=== PATIENT | female | born 1980 | race Caucasian/White ===

== ENCOUNTER 2017-12-03 12:14 | Observation (INO) ==
[2017-12-03] MEDS ORDERED: methylPREDNISolone 125 MG/2 ML VIAL IVP ONE (12:32)
--- NOTE | 2017-12-03 12:32 | Emergency Department Note ---
Disposition Clinical Impression: Facial cellulitis Disposition: Admitted As Inpatient Condition: Good Time of Disposition: 15:49 General Adult HPI - General Chief complaint: ED Allergic Reaction Stated complaint: facial and throat swelling Time Seen by Provider: 12/03/17 12:19 Source: patient Limitations: no limitations Nursing Notes Reviewed: Yes Vital Signs Reviewed: Yes - History of Present Illness HPI Narrative: 37-year-old female otherwise healthy presents to the emergency department with left facial swelling and rash. Initially started 6 days ago while at work. She noticed that her face started to feel warm and she noticed redness. It has progressively gotten larger more red and itchy. She saw her primary care physician the other day and was placed on hydroxyzine. She denies any recent changes to her medications. No new detergents. No changes to her facial products. She does report trialing by candice Salmeron the night before but she continues to take that at this time. She has been picking hydroxyzine on top of that as well. She denies any other complaints. She does report some trouble with swallowing but no difficulty with breathing. Denies any recent dental procedures. Denies any other complaints. Pain Scale: 0 - Related Data Previous Rx's Medication Instructions Recorded Hydrocodone/Acetaminophen [[place] 1 tab PO Q4H PRN #20 tab 12/30/14 5-325 Tablet] Promethazine [Phenergan] 25 mg PO Q8HR PRN #10 tablet 12/30/14 Sulfamethoxazole/Trimeth DS 1 each PO BID 10 Days tablet 12/30/14 [Bactrim DS] Allergies Allergy/AdvReac Type Severity Reaction Status Date / Time Amoxicillin [From Augmentin] Allergy Rash Verified 12/30/14 09:15 clavulanic acid Allergy Rash Verified 12/30/14 09:15 [From Augmentin] All systems ED: reviewed and negative except as stated. Review of Systems: As Per HPI Constitutional: Denies: fever, chills Eyes: Denies: eye pain, vision change ENT ED: Reports: ear pain, dysphagia. Denies: dental pain, congestion Cardiovascular: Denies: chest pain Respiratory: Denies: cough, dyspnea Gastrointestinal: Denies: abdominal pain, nausea, vomiting Musculoskeletal: Denies: back pain, neck pain Integumentary: Reports: as per HPI Neurological: Denies: headache, weakness, numbness Endocrine: Denies: fatigue Past Medical History - Past Medical History Attestation: Yes The following information was validated with the patient. Source: patient Medical history: Reports: asthma, other Surgical history: Reports: Psychiatric history: Reports: no psych history - Social History Smoking Status: Never smoker Smokeless Tobacco Status: No Alcohol use: Reports: rarely Drug use: Reports: none Physical Exam - General Limitations: no limitations General appearance: alert, anxious - Head Head exam: atraumatic, normocephalic - Expanded Head Exam Head exam physicial: Present: other (Left side of her throat derma, raised no vesicles or pustules extends from the forehead down to the mandible with some involvement to the left inferior earlobe). Absent: laceration, abrasion - Eye Eye exam: Present: normal appearance, PERRL, EOMI, periorbital swelling, other ( No proptosis). Absent: periorbital tenderness - ENT ENT exam: normal exam, normal oropharynx, mucous membranes moist - Expanded ENT Exam External ear exam: Present: other (erythema and induration) Nose exam: other (no dickinson sign). negative: rhinorrhea Mouth exam: Present: normal external inspection, tongue normal Teeth exam: Present: normal inspection Throat exam: Present: normal inspection - Neck Neck exam: Present: full ROM, trachea midline, other (red, rash to left neck expanding up to face) - Chest Chest inspection: Present: normal inspection, symmetric chest wall rise. Absent : tenderness, rash - Respiratory Respiratory exam: Present: normal lung sounds bilaterally. Absent: respiratory distress, wheezes, stridor - Cardiovascular Cardiovascular exam: Present: regular rate, normal rhythm, normal heart sounds - Abdominal Exam Abdominal exam: Present: soft, Non-Tender, normal bowel sounds. Absent: tenderness, distention, guarding, rebound, rigidity - Extremities Exam Extremities exam: Present: normal inspection, full ROM, normal capillary refill. Absent: tenderness, pedal edema - Back Exam Back exam: Present: normal inspection, full ROM. Absent: tenderness - Neurological Exam Neurological exam: Present: alert, oriented X3 - Psychiatric Psychiatric exam: Present: normal affect, normal mood - Skin Skin exam: Present: dry, intact, normal color, rash, erythema - Expanded Skin Exam Type of lesion: Present: rash Distribution: head, face, neck Description: Present: macular, papular, indurated. Absent: swelling, vesicular , blisters, urticarial Course - Consultations Time: 15:49 Vital Signs Temperature 98.5 F 12/03/17 12:19 Pulse Rate 94 12/03/17 12:19 Respiratory Rate 20 12/03/17 12:19 Blood Pressure 160/93 12/03/17 12:19 O2 Sat by Pulse Oximetry 98 12/03/17 12:19 Temperature 98.1 F 12/03/17 16:58 Pulse Rate 88 12/03/17 16:58 Respiratory Rate 17 12/03/17 16:58 Blood Pressure 118/79 12/03/17 16:58 O2 Sat by Pulse Oximetry 95 12/03/17 16:58 Oxygen Delivery Oxygen Delivery Room Air Medical Decision Making - MDM Narrative Medical decision making narrative: Patient was discussed with my attending physician who agrees with ED management and final disposition. They independently evaluated the patient. Please refer to their attestation to this encounter for additional information. This note was generated by [employer] voice recognition software and as a result grammatical or spelling errors may occur using this program. - Lab Data Result diagrams: 12/03/17 12:54 12/03/17 12:54 Lab Results 12/03/17 12/03/17 Range/Units 12:54 12:54 WBC 10.8 (4.3-11.1) K/mcL RBC 4.90 (3.82-4.97) M/mcL Hgb 14.1 (11.5-15.4) g/dL Hct 43.0 (35.3-44.9) % MCV 87.8 (83.0-100.0) fL MCH 28.8 (28.0-33.3) pg MCHC 32.8 (31.6-35.5) g/dL RDW 12.4 (11.5-14.5) % Plt Count 453 H (140-400) K/mcL MPV 8.7 L (9.4-12.4) fL Immature Gran % 0.3 (0-4) % Seg Neutrophils % 38.6 % Lymphocytes % 43.0 % Monocytes % 8.8 % Eosinophils % 8.4 % Basophils % 0.9 % Neutrophils # 4.2 (1.6-8.9) K/mcL Lymphocytes # 4.6 (0.6-4.6) K/mcL Monocytes # 1.0 (0.0-1.3) K/mcL Eosinophils # 0.9 H (0.0-0.6) K/mcL Basophils # 0.1 (0.0-0.2) K/mcL Sodium 141 (136-145) mEq/L Potassium 3.5 (3.5-5.1) mEq/L Chloride 106 (98-107) mEq/L Carbon Dioxide 27 (23-29) mEq/L BUN 14 (6-20) mg/dL Creatinine 0.84 (0.60-1.20) mg/dL Est GFR ( Amer) > 60 (> 60) Est GFR (Non-Af Amer) > 60 (> 60) BUN/Creatinine Ratio 17 (6-26) Glucose 82 (70-105) mg/dL Calculated Osmolality 292 (280-300) Calcium 9.1 (8.6-10.3) mg/dL
[2017-12-03] MEDS ORDERED: Isovue-370 500 ML INFUS..BTL IV ONE (12:33)
--- NOTE | 2017-12-03 12:52 | Emergency Department Note ---
Disposition Clinical Impression: Facial cellulitis Disposition: Admitted As Inpatient Condition: Good General Adult HPI - General Chief complaint: ED Allergic Reaction Stated complaint: facial and throat swelling Time Seen by Provider: 12/03/17 12:19 Source: patient Mode of arrival: private vehicle Limitations: no limitations Vital Signs Reviewed: Yes - History of Present Illness HPI Narrative: The patient is a 37 year old female that presents with left-sided facial swelling and erythema. Per patient's report, starting 5 day ago patient started to notice some itching along the left-side of her face and neck. Since that time the left-side of her face has continue to swell with increasing erythema. Patient was seen by her PCP 2 days ago who prescribed her hydroxyzine at that time, which has helped with itching, but she continues to have worsening symptoms. Patient says the day prior to developing her symptoms she did start a new dye free Benadryl the day prior to all off her symptoms starting. She has continued to take the Benadryl daily since that time. Patient otherwise denies any new lotions, soaps, detergents, and foods. Patient denies any fever, chills , chest pain, shortness of breath, abdominal pain, nausea, vomiting, diarrhea, pain with eye movement. Pain Scale: 0 - Related Data Previous Rx's Medication Instructions Recorded Hydrocodone/Acetaminophen [[place] 1 tab PO Q4H PRN #20 tab 12/30/14 5-325 Tablet] Promethazine [Phenergan] 25 mg PO Q8HR PRN #10 tablet 12/30/14 Sulfamethoxazole/Trimeth DS 1 each PO BID 10 Days tablet 12/30/14 [Bactrim DS] Allergies Allergy/AdvReac Type Severity Reaction Status Date / Time Amoxicillin [From Augmentin] Allergy Rash Verified 12/30/14 09:15 clavulanic acid Allergy Rash Verified 12/30/14 09:15 [From Augmentin] All systems ED: reviewed and negative except as stated. Constitutional: Denies: fever, chills Eyes: Denies: eye pain, eye discharge, vision change ENT ED: Denies: ear pain, throat pain, congestion Cardiovascular: Denies: chest pain, palpitations Respiratory: Denies: cough, dyspnea, wheezes Gastrointestinal: Denies: abdominal pain, nausea, vomiting, diarrhea Genitourinary: Denies: urgency, dysuria, frequency, hematuria Musculoskeletal: Denies: back pain, neck pain Integumentary: Reports: rash Neurological: Denies: headache, weakness, numbness, paresthesias Past Medical History - Past Medical History Attestation: Yes The following information was validated with the patient. Source: patient Medical history: Reports: asthma, other Surgical history: Reports: Psychiatric history: Reports: no psych history - Social History Smoking Status: Never smoker Smokeless Tobacco Status: No Alcohol use: Reports: rarely Drug use: Reports: none Physical Exam - General Limitations: no limitations General appearance: alert, anxious - Head Head exam: atraumatic, normocephalic - Eye Eye exam: Present: normal appearance, EOMI. Absent: scleral icterus, conjunctival injection - ENT ENT exam: normal exam, mucous membranes moist, normal external ear exam - Neck Neck exam: Present: normal inspection, full ROM, trachea midline - Chest Chest inspection: Present: normal inspection, symmetric chest wall rise - Respiratory Respiratory exam: Present: normal lung sounds bilaterally. Absent: respiratory distress, wheezes - Cardiovascular Cardiovascular exam: Present: regular rate, normal rhythm, normal heart sounds. Absent: systolic murmur, diastolic murmur, rubs, gallop - Extremities Exam Extremities exam: Present: normal inspection, full ROM. Absent: pedal edema - Neurological Exam Neurological exam: Present: alert, oriented X3 - Psychiatric Psychiatric exam: Present: normal affect, normal mood - Skin Skin exam: Present: warm, dry, rash, other (erythema and swelling spanding from the left forehead, left ear, left temporal region down to the left of the mandible with associated swelling. Their is purulent draining coming from the left ear lobe.) Course Course Narrative: Patient is a 37 year old female that presented with left facial erythema and swelling that worsened over the past 3 days. CBC, BMP and CT of the face and neck were ordered. Vital Signs Temperature 98.5 F 12/03/17 12:19 Pulse Rate 94 12/03/17 12:19 Respiratory Rate 20 12/03/17 12:19 Blood Pressure 160/93 12/03/17 12:19 O2 Sat by Pulse Oximetry 98 12/03/17 12:19 Temperature 98.1 F 12/03/17 16:58 Pulse Rate 88 12/03/17 16:58 Respiratory Rate 17 12/03/17 16:58 Blood Pressure 118/79 12/03/17 16:58 O2 Sat by Pulse Oximetry 95 12/03/17 16:58 Oxygen Delivery Oxygen Delivery Room Air Medical Decision Making - MDM Narrative Medical decision making narrative: Patient has remained hemodynamically stable through out her ED work up. CBC and BMP were unremarkable. CT showed left facial celulitis without an underlying abscess. Patient was started on Clindamycin in the ED. She also received Benadryl and Solumedrol during her ED work up. Labs and imaging were discussed with the patient. Discussed with patient plan to admit her. She was agreeable to the plan at that time. Discussed case with hospitalist who agrees to admit the patient. - Lab Data Result diagrams: 12/03/17 12:54 12/03/17 12:54 Lab Results 12/03/17 12/03/17 Range/Units 12:54 12:54 WBC 10.8 (4.3-11.1) K/mcL RBC 4.90 (3.82-4.97) M/mcL Hgb 14.1 (11.5-15.4) g/dL Hct 43.0 (35.3-44.9) % MCV 87.8 (83.0-100.0) fL MCH 28.8 (28.0-33.3) pg MCHC 32.8 (31.6-35.5) g/dL RDW 12.4 (11.5-14.5) % Plt Count 453 H (140-400) K/mcL MPV 8.7 L (9.4-12.4) fL Immature Gran % 0.3 (0-4) % Seg Neutrophils % 38.6 % Lymphocytes % 43.0 % Monocytes % 8.8 % Eosinophils % 8.4 % Basophils % 0.9 % Neutrophils # 4.2 (1.6-8.9) K/mcL Lymphocytes # 4.6 (0.6-4.6) K/mcL Monocytes # 1.0 (0.0-1.3) K/mcL Eosinophils # 0.9 H (0.0-0.6) K/mcL Basophils # 0.1 (0.0-0.2) K/mcL Sodium 141 (136-145) mEq/L Potassium 3.5 (3.5-5.1) mEq/L Chloride 106 (98-107) mEq/L Carbon Dioxide 27 (23-29) mEq/L BUN 14 (6-20) mg/dL Creatinine 0.84 (0.60-1.20) mg/dL Est GFR ( Amer) > 60 (> 60) Est GFR (Non-Af Amer) > 60 (> 60) BUN/Creatinine Ratio 17 (6-26) Glucose 82 (70-105) mg/dL Calculated Osmolality 292 (280-300) Calcium 9.1 (8.6-10.3) mg/dL
--- NOTE | 2017-12-03 13:01 | Emergency Department Note ---
Disposition Clinical Impression: Facial cellulitis Disposition: Admitted As Inpatient Condition: Good Time of Disposition: 16:42 General Adult HPI - General Chief complaint: ED Allergic Reaction Stated complaint: facial and throat swelling Time Seen by Provider: 12/03/17 12:19 Source: patient Mode of arrival: private vehicle Limitations: no limitations - History of Present Illness Pain Scale: 0 - Related Data Previous Rx's Medication Instructions Recorded Hydrocodone/Acetaminophen [[place] 1 tab PO Q4H PRN #20 tab 12/30/14 5-325 Tablet] Promethazine [Phenergan] 25 mg PO Q8HR PRN #10 tablet 12/30/14 Sulfamethoxazole/Trimeth DS 1 each PO BID 10 Days tablet 12/30/14 [Bactrim DS] Allergies Allergy/AdvReac Type Severity Reaction Status Date / Time Amoxicillin [From Augmentin] Allergy Rash Verified 12/30/14 09:15 clavulanic acid Allergy Rash Verified 12/30/14 09:15 [From Augmentin] Constitutional: Denies: fever, chills Eyes: Denies: eye pain, vision change ENT ED: Reports: ear pain, dysphagia. Denies: dental pain, congestion Cardiovascular: Denies: chest pain Respiratory: Denies: cough, dyspnea Gastrointestinal: Denies: abdominal pain, nausea, vomiting Musculoskeletal: Denies: back pain, neck pain Integumentary: Reports: as per HPI Neurological: Denies: headache, weakness, numbness Endocrine: Denies: fatigue Past Medical History - Past Medical History Medical history: Reports: asthma, other Surgical history: Reports: Psychiatric history: Reports: no psych history - Social History Smoking Status: Never smoker Smokeless Tobacco Status: No Alcohol use: Reports: rarely Drug use: Reports: none Physical Exam - General Limitations: no limitations General appearance: alert, anxious Course Vital Signs Temperature 98.5 F 12/03/17 12:19 Pulse Rate 94 12/03/17 12:19 Respiratory Rate 20 12/03/17 12:19 Blood Pressure 160/93 12/03/17 12:19 O2 Sat by Pulse Oximetry 98 12/03/17 12:19 Temperature 98.3 F 12/03/17 16:39 Pulse Rate 83 12/03/17 14:12 Respiratory Rate 20 12/03/17 16:39 Blood Pressure 115/82 12/03/17 16:39 O2 Sat by Pulse Oximetry 98 12/03/17 14:12 Oxygen Delivery Oxygen Delivery Room Air Medical Decision Making - Lab Data Result diagrams: 12/03/17 12:54 12/03/17 12:54 Lab Results 12/03/17 12/03/17 Range/Units 12:54 12:54 WBC 10.8 (4.3-11.1) K/mcL RBC 4.90 (3.82-4.97) M/mcL Hgb 14.1 (11.5-15.4) g/dL Hct 43.0 (35.3-44.9) % MCV 87.8 (83.0-100.0) fL MCH 28.8 (28.0-33.3) pg MCHC 32.8 (31.6-35.5) g/dL RDW 12.4 (11.5-14.5) % Plt Count 453 H (140-400) K/mcL MPV 8.7 L (9.4-12.4) fL Immature Gran % 0.3 (0-4) % Seg Neutrophils % 38.6 % Lymphocytes % 43.0 % Monocytes % 8.8 % Eosinophils % 8.4 % Basophils % 0.9 % Neutrophils # 4.2 (1.6-8.9) K/mcL Lymphocytes # 4.6 (0.6-4.6) K/mcL Monocytes # 1.0 (0.0-1.3) K/mcL Eosinophils # 0.9 H (0.0-0.6) K/mcL Basophils # 0.1 (0.0-0.2) K/mcL Sodium 141 (136-145) mEq/L Potassium 3.5 (3.5-5.1) mEq/L Chloride 106 (98-107) mEq/L Carbon Dioxide 27 (23-29) mEq/L BUN 14 (6-20) mg/dL Creatinine 0.84 (0.60-1.20) mg/dL Est GFR ( Amer) > 60 (> 60) Est GFR (Non-Af Amer) > 60 (> 60) BUN/Creatinine Ratio 17 (6-26) Glucose 82 (70-105) mg/dL Calculated Osmolality 292 (280-300) Calcium 9.1 (8.6-10.3) mg/dL Attestation Statement - Attestation Attestation: I examined this patient and my medical decision-making was reviewed with the Resident Physician. I agree with the documented findings, disposition and treatment plan as described except to the extent set forth below. Patient presents to the emergency Department chief complaint of left-sided facial swelling. Patient's symptoms started Monday as hives. She had bumps on her cheek that progressed and got larger over the next couple of days. They resolved but then her face became increasingly swollen red and hot. She states it itches. She is seen her PCP and was taking Benadryl and prednisone. It is getting worse. On examination she is awake and alert. She is a moderate amount of swelling and erythema to the left cheek, temporal, and left lateral jaw. There is no sublingual swelling. Her ear canal appears normal. Posterior pharynx appears normal. Dentition in good condition with no signs of cavities or infections. Plan. Patient appears to have a left-sided facial cellulitis is quite extensive. We will check a CT scan. Basic labs. Patient CT scan shows a facial cellulitis. It appears that she has a secondary infection. Patient given IV clindamycin. She does not meet SIRS criteria. Soft Tissue Neck CT 12/03/17 12:33 IMPRESSION: Left facial cellulitis. No abscess. D/ / Manuelito Tapia MD / Manuelito Tapia MD Interpreting Provider: Manuelito Tapia MD
[2017-12-03 13:09] LABS: Basophils # 0.1 K/mcL (0.0-0.2); Basophils % 0.9 %; Eosinophils # 0.9 K/mcL (0.0-0.6); Eosinophils % 8.4 %; Hemoglobin 14.1 g/dL (11.5-15.4); Immature Granulocytes % 0.3 % (0-4); Lymphocytes # 4.6 K/mcL (0.6-4.6); Mean Corpuscular HGB Conc 32.8 g/dL (31.6-35.5); Mean Corpuscular Hemoglobin 28.8 pg (28.0-33.3); Mean Corpuscular Volume 87.8 fL (83.0-100.0); Mean Platelet Volume 8.7 fL (9.4-12.4); Monocytes % 8.8 %; Neutrophils # 4.2 K/mcL (1.6-8.9); Platelet Count 453 K/mcL (140-400); Red Cell Distribution Width 12.4 % (11.5-14.5); Segmented Neutrophils % 38.6 %
[2017-12-03 13:24] LABS: BUN/Creatinine Ratio 17 (6-26); Blood Urea Nitrogen 14 mg/dL (6-20); Calcium 9.1 mg/dL (8.6-10.3); Carbon Dioxide 27 mEq/L (23-29); Chloride 106 mEq/L (98-107); Glucose 82 mg/dL (70-105); Osmolality,Calculated 292 (280-300); Potassium 3.5 mEq/L (3.5-5.1); Sodium 141 mEq/L (136-145); eGFR For Non-African Americans > 60 (> 60)
[2017-12-03] MEDS ORDERED: Clindamycin 900 MG/50 ML 900 MG/50 ML IV.SOLN IVPB ONE (14:21)
[2017-12-03] MEDS ORDERED: Acetaminophen 325 MG TABLET PO PRN (16:26)
[2017-12-03] MEDS ORDERED: Naloxone 0.4 MG/ML INJ IVP PRN (16:26)
[2017-12-03] MEDS ORDERED: traMADol 50 MG TABLET PO PRN (16:26)
--- NOTE | 2017-12-03 16:37 | Internal Med History&Physical ---
<Brittni Buchanan - Last Filed: 12/03/17 16:34> Date of Encounter: 12/03/17 Time of Encounter: 16:34 Internal Medicine - H&P: HPI Admitted From: Home Plans for Post Hospital Care: Home History of present illness: Ms. Grande is a 37 year old female that presents with left-sided facial swelling and erythema. Per patient's report, starting 5 day ago patient started to notice some itching along the left-side of her face and neck. Since that time the left-side of her face has continue to swell with increasing erythema. Patient was seen by her PCP 2 days ago who prescribed her hydroxyzine at that time, which has helped with itching, but she continues to have worsening symptoms. Patient says the day prior to developing her symptoms she did start a new Benadryl the day prior to all off her symptoms starting. She has continued to take the Benadryl daily since that time. Patient otherwise denies any new lotions, soaps, detergents, and foods. Patient denies any fever, chills, chest pain, shortness of breath, abdominal pain, nausea, vomiting, diarrhea, pain with eye movement. At the ED, patient vital signs were stable, labs were unremarkable, CT of face and neck soft tissue showed possible left-sided facial cellulitis. Patient received 1 dose of clindamycin at the ED. Patient will be admitted as observation for further evaluation and treatment. Past Med Surg Social Fam HX - Past Medical History Medical history: asthma, other Additional medical history: cardiac ablation Psychiatric history: no psych history - Past Surgical History Surgical History: Additional surgical history: ablasion - Social History Smoking Status: Never smoker Smokeless Tobacco Status: No Alcohol use: rarely Drug use: none Internal Medicine - H&P: Meds Fluticasone/Salmeterol [Advair 250-50 Diskus] 1 puff PO BID 12/03/17 [History] Montelukast [Singulair] 10 mg PO DAILY 12/03/17 [History] 3 Allergy/AdvReac Type Severity Reaction Status Date / Time Amoxicillin [From Augmentin] Allergy Rash Verified 12/03/17 17:22 clavulanic acid Allergy Rash Verified 12/03/17 17:22 [From Augmentin] Sulfa (Sulfonamide Allergy Rash Verified 12/03/17 17:22 Antibiotics) All Systems PM: A 10-system review of systems was performed and is negative for pertinent findings except as documented above in the HPI. Review of systems: REVIEW OF SYSTEMS: CONSTITUTIONAL: No weight loss, fever, chills, weakness or fatigue. HEENT: Eyes: No visual loss, blurred vision, double vision or yellow sclerae. Ears, Nose, Throat: No hearing loss, sneezing, congestion, runny nose or sore throat. SKIN: see HPI. CARDIOVASCULAR: No chest pain, chest pressure or chest discomfort. No palpitations or edema. RESPIRATORY: No shortness of breath, cough or sputum. GASTROINTESTINAL: No anorexia, nausea, vomiting or diarrhea. No abdominal pain or blood. GENITOURINARY: No dysuria, urgency, or frequency. NEUROLOGICAL: No headache, dizziness, syncope, paralysis, ataxia, numbness or tingling in the extremities. No change in bowel or bladder control. MUSCULOSKELETAL: No muscle, back pain, joint pain or stiffness. HEMATOLOGIC: No anemia, bleeding or bruising. LYMPHATICS: No enlarged nodes. No history of splenectomy. PSYCHIATRIC: No history of depression or anxiety. ENDOCRINOLOGIC: No reports of sweating, cold or heat intolerance. No polyuria or polydipsia. - Constitutional Vitals: Temp Pulse Resp BP Pulse Ox 98.4 F 83 20 135/88 98 12/03/17 14:12 12/03/17 14:12 12/03/17 14:12 12/03/17 14:12 12/03/17 14:12 General appearance: Present: cooperative, A&O X 3, answers questions appropriately Exam: PHYSICAL EXAMINATION: GENERAL APPEARANCE: The patient is alert, oriented and in no acute distress. HEENT: Head is normocephalic. The sinuses are nontender. Pupils are equal and reactive. The nares are patent. Oropharynx clear without lesions. NECK: Supple without lymphadenopathy. HEART: Regular rate and rhythm. LUNGS: No crackles or wheezes are heard. ABDOMEN: Soft, nontender, nondistended with good bowel sounds heard. Inguinal area is normal. EXTREMITIES: Without cyanosis, clubbing or edema. NEUROLOGICAL: Gross nonfocal. SKIN: left side of face has diffuse patchy erythematous rash with fine scales on the surface, no blister or drainage. Internal Med - H&P Results - Labs CBC & Chem 7: 12/03/17 12:54 12/03/17 12:54 - Assessment and plan (1) Facial cellulitis Current Visit: Yes Status: Acute Assessment and plan: 36-year-old female previous healthy presented with 5 days of left-sided facial swelling and redness. Has been treated by PCP as hives with oral steroids, Benadryl, and hydroxyzine, and Tums progressively getting worse. Face and neck CT showed possible soft tissue cellulitis. Patient received 1 dose of clindamycin at the ED. - Most likely etiologies skin infection, blood culture obtained and the results pending. We will continue IV antibiotics with cefepime, vancomycin, and clindamycin to cover all possible organisms. - Supportive care with IV steroid, zyrtec, and the H2 kat Zantac for possible allergic skin reactions. - Time Spent With Patient Total time spent is greater than 50% in coordination of care (as documented) at patient's floor/unit and/or counseling patient: Greater than 35 minutes <Judah Duran - Last Filed: 12/03/17 18:10> Date of Encounter: 12/03/17 Internal Medicine - H&P: HPI History of present illness: Ms. Grande is a 37 year old female All Systems PM: A 10-system review of systems was performed and is negative for pertinent findings except as documented above in the HPI. - Constitutional Vitals: Temp Pulse Resp BP Pulse Ox 98.1 F 88 17 118/79 95 12/03/17 16:58 12/03/17 16:58 12/03/17 16:58 12/03/17 16:58 12/03/17 16:58 Internal Med - H&P Results - Labs CBC & Chem 7: 12/03/17 12:54 12/03/17 12:54 - Assessment and plan (1) Facial cellulitis Current Visit: Yes Status: Acute - Time Spent With Patient Total time spent is greater than 50% in coordination of care (as documented) at patient's floor/unit and/or counseling patient: - Attending Attestation I have seen and examined the patient with INDIGO MIXER Dewayne Elkins and agree with his/ her assessment and plan. 37-year-old female with no significant past medical history is admitted for left-sided facial redness. Was being treated as an outpatient for hives with hydroxyzine and prednisone without relief. No known dental infections. Afebrile, hemodynamically stable, well demarcated areas of redness on left cheek and forehead. No vesicles seen or any involvement in the corner of the eyes or tip of the nose. Warm to touch, minimal tenderness on palpation, no pus expressed. Labs were unremarkable with normal white blood cell count. CT scan showed left-sided facial cellulitis without any bony involvement. Patient is allergic to Augmentin and sulfa; will treat with broad- spectrum antibiotics and monitor her course. Judah Duran MD
[2017-12-03] MEDS ORDERED: Cetirizine HCl 5 MG/5 ML UDC PO SCH (16:45)
[2017-12-03] MEDS: MethylPREDNISolone 40 MG/ML VIAL IVP SCH (18:47)
[2017-12-03] MEDS: Ringers Solution, Lactated 1,000 ML IVC SCH (18:48)
[2017-12-03] MEDS: Famotidine 20 MG TABLET PO SCH (19:26)
[2017-12-03] MEDS: Cefepime HCl 1,000 MG in 0.9 % Sodium Chloride Mini Bag 100 ML IVPB SCH (23:00)
[2017-12-03] MEDS: Clindamycin 600 MG/50 ML 600 MG/50 ML IV.SOLN IVPB SCH (23:41)
[2017-12-04 05:18] LABS: Hematocrit 41.1 % (35.3-44.9); Hemoglobin 13.4 g/dL (11.5-15.4); Mean Corpuscular HGB Conc 32.6 g/dL (31.6-35.5); Mean Corpuscular Hemoglobin 28.6 pg (28.0-33.3); Mean Corpuscular Volume 87.6 fL (83.0-100.0); Mean Platelet Volume 9.3 fL (9.4-12.4); Platelet Count 478 K/mcL (140-400); Red Blood Count 4.69 M/mcL (3.82-4.97); Red Cell Distribution Width 12.2 % (11.5-14.5)
[2017-12-04 05:37] LABS: BUN/Creatinine Ratio 16 (6-26); Blood Urea Nitrogen 11 mg/dL (6-20); Calcium 9.3 mg/dL (8.6-10.3); Carbon Dioxide 23 mEq/L (23-29); Chloride 107 mEq/L (98-107); Glucose 200 mg/dL (70-105); Osmolality,Calculated 291 (280-300); Sodium 138 mEq/L (136-145); eGFR For Non-African Americans > 60 (> 60)
[2017-12-04] MEDS: Budesonide/Formoterol 80/4.5 MDI IH SCH ×2 (05:43→14:05)
[2017-12-04] MEDS: MethylPREDNISolone 40 MG/ML VIAL IVP SCH ×2 (05:59→16:04)
[2017-12-04] MEDS: Clindamycin 600 MG/50 ML 600 MG/50 ML IV.SOLN IVPB SCH ×2 (08:23→16:04)
[2017-12-04] MEDS: Ringers Solution, Lactated 1,000 ML IVC SCH (08:24)
[2017-12-04] MEDS: Famotidine 20 MG TABLET PO SCH (08:25)
[2017-12-04] MEDS: Cefepime HCl 1,000 MG in 0.9 % Sodium Chloride Mini Bag 100 ML IVPB SCH ×2 (08:25→16:05)
[2017-12-04] MEDS ORDERED: *HR* LORazepam 0.5 MG TABLET PO STA (08:45)
[2017-12-04] MEDS ORDERED: Lactobacillus 1 EACH CAP.SPRINK PO SCH (09:00)
--- NOTE | 2017-12-04 09:24 | Internal Med Progress Note ---
Hospitalist Progress Note - Encounter Date of Encounter: 12/04/17 Time of Encounter: 09:21 - Subjective Interval History: Seen and examined at bedside today. Cellulitis on face improving. She is concerned that the swelling is extending into her lt neck. - Exam Vitals: Temp Pulse Resp BP Pulse Ox 97.7 F 76 18 111/74 93 12/04/17 06:59 12/04/17 06:59 12/04/17 06:59 12/04/17 06:59 12/04/17 06:59 Exam: PHYSICAL EXAMINATION: GENERAL APPEARANCE: The patient is alert, oriented and in no acute distress. HEENT: Head is normocephalic. The sinuses are nontender. Pupils are equal and reactive. The nares are patent. Oropharynx clear without lesions. NECK: Supple without lymphadenopathy. HEART: Regular rate and rhythm, S1, S2. LUNGS: CTA AP&L B/L ABDOMEN: Soft, nontender, nondistended with good bowel sounds heard. Inguinal area is normal. EXTREMITIES: Without cyanosis, clubbing or edema. NEUROLOGICAL: Gross nonfocal. SKIN: left side of face has a confluent erythematous rash with fine scales on the surface; well demarcated, no blister or drainage. PSYCH: anxious, agitated - Assessment and Plan (1) Facial cellulitis Current Visit: Yes Status: Acute Assessment and Plan: 36-year-old female previous healthy presented with 5 days of left-sided facial swelling and redness. Has been treated by PCP as hives with oral steroids, Benadryl, and hydroxyzine. Rash was progressively getting worse [employer]KER to ED. Face and neck CT showed possible soft tissue cellulitis. Patient received 1 dose of clindamycin at the ED. - Most likely etiologies skin infection, blood culture obtained and the results pending. We will continue IV antibiotics with cefepime, vancomycin, and clindamycin to cover all possible organisms. - Supportive care with IV steroid, H2 kat, and benedryl for possible allergic skin reactions. 12/04--patient was started on cefepime, vancomycin and clindamycin yesterday. Blood cultures pending. Consider erysipelas as differential diagnosis versus cellulitis. Consult infectious disease for further recommendations and evaluation. At this time I will discontinue cefepime and clindamycin and continue with vancomycin. The patient is nontoxic-appearing, remains hemodynamically stable. Leukocytosis on todays labs, likely 2/2 steroids, monitor labs daily. No SIRS criteria met (2) Anxiety Current Visit: Yes Status: Acute Assessment and Plan: no h/o anxiety appears anxious; she reports anxiety started when facial swelling started give 0.5mg ativan x1 now as she is very anxious appearing; monitor - Time Spent with Patient Total time spent is greater than 50% in coordination of care (as documented) at patient's floor/unit and/or counseling patient: Internal Medicine: Result - Labs CBC & Chem 7: 12/04/17 04:00 12/04/17 04:00 Labs: Short CBC 12/04/17 Range/Units 04:00 WBC 14.6 H (4.3-11.1) K/mcL Hgb 13.4 (11.5-15.4) g/dL Hct 41.1 (35.3-44.9) % Plt Count 478 H (140-400) K/mcL BMP 12/04/17 04:00 Sodium 138 Potassium 4.0 Chloride 107 Carbon Dioxide 23 BUN 11 Creatinine 0.70 Glucose 200 H Calcium 9.3 Consult Discharge Plan - Plan Referrals: Jesica Newton, GLASSWARE MAKER DEMONSTRATOR [Primary Care Provider] - 12/07/17 1:30 pm
--- NOTE | 2017-12-04 13:21 | Infectious Disease Consult ---
Date of Encounter: 12/04/17 Time of Encounter: 13:21 Assessment and Plan (1) Leukocytosis Status: Acute Assessment and plan: WBC elevated at 14 today with normal differential. Likely secondary to steroids given yesterday. Continue to trend. Qualifiers: Leukocytosis type: unspecified Qualified Code(s): D72.829 - Elevated white blood cell count, unspecified (2) Facial cellulitis Status: Suspected Assessment and plan: Location: Left face. Causative organism unclear. Non-purulent. CT scan of the neck/face showed findings consistent with cellulitis, but no abscess, necrotizing fasciitis, or osteomyelitis noted. Not sure if this a true cellulitis vs. other etiology. Consider dermatology to evaluate. May benefit from steroids, but will defer to the primary and dermatology teams. Continue Vancomycin IV. Pharmacy to dose. Goal trough ~15. Continue Cefepime 2 grams IV Q12H. Discontinue Clindamycin. Duration of treatment depends on the clinical picture. Monitor renal function and for drug toxicity and dose-adjust antibiotics. (3) Anxiety Status: Acute Infectious Disease HPI - Data of Consult Patient: new to practice Consult date: 12/04/17 Requesting Physician: Judah Duran MD Primary Care Provider: Jesica Newton CNP - Consult Narrative Reason for consult: Facial cellulitis History of present illness: Ms. Grande is a 37 year old female with a past medical history of asthma. The patient was admitted to the hospital 12/03/17 for facial cellulitis. We are consulted 12/04/17 for antibiotic recommendations for facial cellulitis. Briefly, the patient is a 37 year old female with a past medical history as stated above. The patient presented to the ER with complaints of 6 day history of left face rash. Upon arrival to the ER, the patient had tachycardia, but was otherwise hemydynamically stable. Labs revealed a normal WBC. CT of the face and neck showed findings consistent with cellulitis. She was given steroids and antihistamines and started on IV antibiotics. She was admitted to the hospital for further evaluation. Since admission, the patient has remained afebrile. She has intermittent episodes of tachycardia, but nothing sustained. Her WBC is up to 14 today. Blood cultures were drawn x 2 sets and are pending. Currently, the patient is on IV Vanc, Cefepime, and Clindamycin. We've been asked to evaluate and make further recommendations. During my exam today, the patient states the rash started with welts to the left side of her face last Monday while she was at work. It was itchy and uncomfortable and swollen. The symptoms persisted/worsened so she was evaluated by her PCP on Monday. She was diagnosed with a stress reaction and started on PO steroids x 3 days and hydroxyzine. She states her symptoms seemed to improve until Monday when the swelling began to worsen again. She presented to the ER yesterday for evaluation. While in the ER, she was noted to have progression in her symptoms. She denies fevers, chills, or rigors. Denies chest pain. Reports chronic shortness of breath, wheezing, and dry cough secondary to her asthma. Denies nausea, vomiting, diarrhea, or constipation. Denies abdominal pain, urinary complaints, or appetite changes. Denies oral thrush or dental pain. Denies congestion, earache, or sore throat. Denies rashes to other parts of her body except a small area of the RUE, but states she is itchy in multiple places. Denies any known bug bites. States the rash is itchy and is started to cross the midline of her neck. She states the rash feels warm, but is not painful. The patient lives at home with her . 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 States no one else around her has had any of these symptoms. Denies tobacco, alcohol, or illicit drug use. Denies chronic infectious diseases. Denies travel outside [place]. CC: Judah Duran MD Past Med Surg Social Fam HX - Past Medical History Attestation: Yes The following information was validated with the patient. Source: patient, old records reviewed, nursing notes reviewed Medical history: asthma, other Additional medical history: cardiac ablation Psychiatric history: no psych history - Past Surgical History Surgical History: Additional surgical history: ablasion - Social History Smoking Status: Never smoker Smokeless Tobacco Status: No Alcohol use: rarely Drug use: none Occupational status: employed Current living situation: Home - Independent Activity Level: Independent ambulation Recent Out of Country Travel Within the Last 8 Weeks: No Exposure or Possible Exposure to Illness During Travel: No - Family History Father Living Status: Still Living Hx Family Cardiac Disorders: Yes (HTN, HLD) Hx Family Neurologic Disorders: Yes (Parkinsonism plus) Mother Living Status: Still Living Hx Family Cardiac Disorders: Yes (HTN, HLD) Hx Family Respiratory Disorders: Yes (COPD) Hx Family Cancer: Yes (Breast Cancer) Infectious Disease-CN:Meds Fluticasone/Salmeterol [Advair 250-50 Diskus] 1 puff PO BID 12/03/17 [History] Montelukast [Singulair] 10 mg PO DAILY 12/03/17 [History] Cefdinir [Omnicef] 300 mg PO BID 6 Days #12 capsule 12/04/17 [Rx] Skin Cleanser [Cetaphil] 237 ml TP DAILY 10 Days #1 cleanser 12/04/17 [Rx] Triamcinolone Acet 0.1% OINT [Kenalog] 1 appl TP BID 10 Days #1 tube 12/04/17 [ Rx] predniSONE [PredniSONE] See Taper PO DAILY 15 Days #18 tablet 12/04/17 [Rx] 3 Allergy/AdvReac Type Severity Reaction Status Date / Time Amoxicillin [From Augmentin] Allergy Rash Verified 12/03/17 17:22 clavulanic acid Allergy Rash Verified 12/03/17 17:22 [From Augmentin] Sulfa (Sulfonamide Allergy Rash Verified 12/03/17 17:22 Antibiotics) All systems: reviewed and no additional remarkable complaints except as stated Exam - Constitutional Vitals: Temp Pulse Resp BP Pulse Ox 97.8 F 94 18 117/73 93 12/04/17 10:00 12/04/17 10:00 12/04/17 10:00 12/04/17 10:00 12/04/17 10:00 General appearance: average body habitus, cooperative, no acute distress - Head Head exam: Present: atraumatic, normocephalic. Absent: normal inspection - Expanded Head Exam 1 - Dry, erythematous rash. Not warm to touch. Non-tender. 2 - Erythematous rash. Non-tender. Not warm to touch. 3 - Erythematous rash. Non-tender. Not warm to touch. - Eye Eye exam: Present: EOMI, normal appearance, PERRL Pupils: Present: normal accommodation - ENT ENT exam: Present: mucous membranes moist - Neck Neck exam: Absent: meningismus, normal inspection (Erythematous, dry rash noted to the left lateral and anterior neck.), tenderness - Respiratory Respiratory exam: Present: CTAB. Absent: rales, respiratory distress, rhonchi, wheezes - Cardiovascular Cardiovascular exam: Present: RRR, +S1, +S2 - GI/Abdominal GI/Abdominal exam: Present: normal bowel sounds, soft. Absent: distended, tenderness - Extremities Exam Extremities exam: Present: normal inspection. Absent: joint swelling, pedal edema, tenderness - Neurological Exam Neurological exam: Present: alert, oriented X3, no focal deficits - Psychiatric Psychiatric exam: Present: normal affect, normal mood - Skin Skin exam: Present: rash (Left face, left forehead, left/anterior neck, left upper arm) Infectious Disease CN: Results - Labs CBC & Chem 7: 12/04/17 04:00 12/04/17 04:00 Cultures: Cultures 12/04/17 08:40 Blood Culture - Preliminary Peripheral Venipuncture Culture is incubating and being continuously monitored for growth. Final report to follow. 12/04/17 08:42 Blood Culture - Preliminary Peripheral Venipuncture Culture is incubating and being continuously monitored for growth. Final report to follow. Consult Discharge Plan - Plan Instructions: Anxiety (DC) Referrals: Jesica Newton CNP [Primary Care Provider] - 12/07/17 1:30 pm Prescriptions: Cefdinir [Omnicef] 300 mg PO BID 6 Days #12 capsule predniSONE [PredniSONE] See Taper PO DAILY 15 Days #18 tablet Skin Cleanser [Cetaphil] 237 ml TP DAILY 10 Days #1 cleanser Triamcinolone Acet 0.1% OINT [Kenalog] 1 appl TP BID 10 Days #1 tube - Attending Attestation I examined this patient and my medical decision-making was reviewed with the Resident Physician. I agree with the documented findings, disposition and treatment plan as described except to the extent set forth below. This is an addendum to original report dictated by Keyla Anna CNP. Please refer to Keyla's note for full detail. Patient is a 37-year-old woman with past medical history mentioned below including multiple drug allergies apparently has been having facial swelling and severe pruritus. I saw the patient and the presence of Dr. Millard from dermatology. Patient had some crusting on her earlobe and some erythema. Keep in mind patient's been on antibiotics for a few days before had a chest to evaluate her. Term initial diagnosis is this is contact dermatitis and the put the patient on steroids. Because of the crusting on wearing about strep and staph I decided to do Omnicef and doxycycline combination. Treat for 7 days.
[2017-12-04 14:50] VITALS: BP 122/82
--- NOTE | 2017-12-04 16:36 | Dermatology Consult Note ---
Date of Encounter: 12/04/17 Time of Encounter: 16:30 History of Present Illness Reason for Consult: rash on face History of Present Illness: pt is 37 y/o WF with around one week history of worsening, swollen itchy rash on left face. Before she got treatment she said itch was 10/10. Rash initially improved s/p 3 days of steroids and then worsened. She was admitted for facial cellulitis. Currently on IV ATB Review of Systems General/Constitutional: Patient denies fevers, chills, nor recent unintended weight loss, night sweats, no change in appetite or malaise. Hematologic: Patient denies new or enlarging lumps or bumps. Skin: Patient denies new or changing moles, or rash other than what is mentioned above. Past Med Surg Social Fam HX - Past Medical History Medical history: asthma, other Additional medical history: cardiac ablation Psychiatric history: no psych history - Past Surgical History Surgical History: Additional surgical history: ablasion - Social History Smoking Status: Never smoker Smokeless Tobacco Status: No Alcohol use: rarely Drug use: none - Family History Father Living Status: Still Living Hx Family Cardiac Disorders: Yes (HTN, HLD) Hx Family Neurologic Disorders: Yes (Parkinsonism plus) Mother Living Status: Still Living Hx Family Cardiac Disorders: Yes (HTN, HLD) Hx Family Respiratory Disorders: Yes (COPD) Hx Family Cancer: Yes (Breast Cancer) Medications and Allergies Fluticasone/Salmeterol [Advair 250-50 Diskus] 1 puff PO BID 12/03/17 [History] Montelukast [Singulair] 10 mg PO DAILY 12/03/17 [History] 3 Allergy/AdvReac Type Severity Reaction Status Date / Time Amoxicillin [From Augmentin] Allergy Rash Verified 12/03/17 17:22 clavulanic acid Allergy Rash Verified 12/03/17 17:22 [From Augmentin] Sulfa (Sulfonamide Allergy Rash Verified 12/03/17 17:22 Antibiotics) Examination Vital Signs: Temp Pulse Resp BP Pulse Ox 98.9 F 104 17 122/82 94 12/04/17 14:46 12/04/17 14:46 12/04/17 14:46 12/04/17 14:46 12/04/17 14:46 General Examination: The patient appears alert, oriented X3, in no acute distress, healthy-appearing , normal mood. left face and neck and ear with ill defined erythematous slightly raised excoriated patch w/ impetiginization/crust on ear. no LAD - Assessment and Plan (1) Rash Current Visit: Yes Status: Acute I suspect pt had contact dermatitis that got secondarily infected. The intense itch, lack of fever, lack of elevation of WBC, and initial response to steroid point toward contact derm as inital dx. I agree w/ continuing atb's as appears secondarily infected. I would rec use Triamcinolone 0.1% ointment bid x 10 days to the affected area (80 gram tube w no refills) and cleanse w/ cetaphil or cerave hydrating cleanser. I would also do a steroid taper: prednisione 40 mg x 5 days, then 20 mg x 5 days, then 10 mg x 5 days. If she worsens can rtc for biopsy but I am hopeful the above regimen will work. Cont ATB's per ID rec' s. Procedure: Dermatology Date of procedure: 12/04/17 Procedure: no procedure today Consult Discharge Plan - Plan Referrals: Jesica Newton, SMALL MACHINE BINDERY OPERATOR [Primary Care Provider] - 12/07/17 1:30 pm
--- NOTE | 2017-12-04 16:36 | Discharge Summary ---
- NOTES TO OUTPATIENT PROVIDER Notes to Outpatient Provider: Contact dermatitis of left face Orders not resulted at time of discharge: Pending orders 12/04/17 08:40 Culture,Blood [BC] Routine 12/05/17 04:00 Basic Metabolic Panel AM 0400 Complete Blood Count [HEME] AM 0400 12/06/17 04:00 Basic Metabolic Panel AM 0400 Complete Blood Count [HEME] AM 0400 12/07/17 04:00 Basic Metabolic Panel AM 0400 Complete Blood Count [HEME] AM 0400 Date of Encounter: 12/04/17 Time of Encounter: 16:34 - Discharge Diagnosis (1) Facial cellulitis Priority: Primary Status: Suspected Assessment and Plan: 36-year-old female previous healthy presented with 5 days of left-sided facial swelling and redness. Has been treated by PCP as hives with oral steroids, Benadryl, and hydroxyzine. 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 Face and neck CT showed possible soft tissue cellulitis. Patient received 1 dose of clindamycin at the ED. - Most likely etiologies skin infection, blood culture obtained and the results pending. We will continue IV antibiotics with cefepime, vancomycin, and clindamycin to cover all possible organisms. - Supportive care with IV steroid, H2 kat, and benedryl for possible allergic skin reactions. 12/04--patient was started on cefepime, vancomycin and clindamycin yesterday. Blood cultures pending. Consider erysipelas as differential diagnosis versus cellulitis. Consult infectious disease for further recommendations and evaluation. At this time I will discontinue cefepime and clindamycin and continue with vancomycin. The patient is nontoxic-appearing, remains hemodynamically stable. Leukocytosis on todays labs, likely 2/2 steroids, monitor labs daily. No SIRS criteria met Update 12/04--infectious disease and dermatology has seen the patient and ruled out facial cellulitis. Diagnosis of contact dermatitis. Spoke with Dr. Correia who recommends discharging the patient on a 6 day course of Omnicef. The patient is to follow-up in dermatology clinic upon discharge. (2) Anxiety Priority: Secondary Status: Acute Hospital course: Ms. Grande is a 37 year old female who presented with an erythematous rash on the left face and neck. Initially there were some concerns for possible cellulitis. CT imaging of the head reveals soft tissue inflammation without abscess. Infectious disease and dermatology has seen the patient in consultation and diagnosed the patient with contact dermatitis. Plan spoke with the infectious disease physician who recommends discharging with 6 days of Omnicef. Discharge discussed with: patient, nurse, wallpaper consultant - Time Spent with Patient Total time spent providing and/or coordinating discharge services: Less than 30 minutes - Discharge Medications Home Medications: Fluticasone/Salmeterol [Advair 250-50 Diskus] 1 puff PO BID 12/03/17 [History] Montelukast [Singulair] 10 mg PO DAILY 12/03/17 [History] Cefdinir [Omnicef] 300 mg PO BID 6 Days #12 capsule 12/04/17 [Rx] Allergies/Adverse Reactions: 3 Allergy/AdvReac Type Severity Reaction Status Date / Time Amoxicillin [From Augmentin] Allergy Rash Verified 12/03/17 17:22 clavulanic acid Allergy Rash Verified 12/03/17 17:22 [From Augmentin] Sulfa (Sulfonamide Allergy Rash Verified 12/03/17 17:22 Antibiotics) Date of admission: 12/03/17 16:20 Primary care physician: Jesica Newton CNP Consults: 12/04/17 08:30 Consult to Infectious Diseases [CONS] Routine Consulting Provider: Infectious Disease Shruthi Reason for Consult: Facial cellulitis versus erysipelas Time Notified: 08:31 Call Completed: Yes 12/04/17 13:47 Consult to Dermatology [CONS] Routine Consulting Provider: Dermatology Shruthi Reason for Consult: right facial rash Time Notified: 13:47 Call Completed: Yes Discharging clinician: Brady Brown Anticipated date of discharge: 12/04/17 - Constitutional Vitals: Temp Pulse Resp BP Pulse Ox 98.9 F 104 17 122/82 94 12/04/17 14:46 12/04/17 14:46 12/04/17 14:46 12/04/17 14:46 12/04/17 14:46 General appearance: Present: cooperative, A&O X 3, answers questions appropriately Exam: PHYSICAL EXAMINATION: GENERAL APPEARANCE: The patient is alert, oriented and in no acute distress. HEENT: Head is normocephalic. The sinuses are nontender. Pupils are equal and reactive. The nares are patent. Oropharynx clear without lesions. NECK: Supple without lymphadenopathy. HEART: Regular rate and rhythm, S1, S2. LUNGS: CTA AP&L B/L ABDOMEN: Soft, nontender, nondistended with good bowel sounds heard. Inguinal area is normal. EXTREMITIES: Without cyanosis, clubbing or edema. NEUROLOGICAL: Gross nonfocal. SKIN: left side of face has a confluent erythematous rash with fine scales on the surface; well demarcated, no blister or drainage. PSYCH: anxious, agitated - Patient Status Disposition: Home, Self-Care Condition: Good Functional capacity at discharge: independent ambulation Overall status at discharge: patient is progressing back to baseline - Discharge Instructions Follow Up With: Jesica Newton, LABORATORY MECHANICAL TECHNICIAN [Primary Care Provider] - 12/07/17 1:30 pm - Diet and Activity Activity: increase activity as tolerated, resume usual activities as tolerated Diet: advance to your usual diet
[2017-12-04] MEDS ORDERED: Aminoglycoside Consult 1 EACH MC ONE (17:02)
== END 2017-12-04 17:03 | disposition home or self-care (01) ==
LOC: 3BNU 12:14 → EMEROOARM 12:14 → 3BNU 16:40
PROVIDERS: ADMIT Internal Medicine; ATTEND Internal Medicine